=== PATIENT | male | born 1970 | race Asian ===

== ENCOUNTER 2020-05-11 10:30 | Emergency (ER) | payer OTHER ==
[~2020-05-11] VITALS: Ht 175.3 cm; Wt 59.0 kg
[2020-05-11 10:33] VITALS: BP_SYST 162
--- NOTE | 2020-05-11 10:40 | NUR ---
Patient to ER bed 2 to gown for evaluation. Side rails up. Report given to Fanta SIERRA.
--- NOTE | 2020-05-11 10:50 | NUR ---
PT BIBA BIB [id number] FROM WORK C/O PALPITATIONS X3O MIN PRIOR TO ARRIVAL. REPORTS THAT IT HAS RESOLVED UPON ARRIVAL. PT DENIES ANY MEDICAL HX, DENIES CHEST PAIN AT THIS TIME. PT IS AAOX4, V/S STABLE
--- NOTE | 2020-05-11 11:00 | NUR ---
ER DR. JACKMAN AT THE BEDSIDE EVALUATING PT
--- NOTE | 2020-05-11 11:10 | NUR ---
# 20 gauge angiocath placed to RAC. Use of asceptic technique. Opsite placed over site. Blood return noted. Blood for lab drawn from site. Flushed with 10 cc of normal saline. No evidence of infiltration noted. Patient tolerated well.
[2020-05-11 11:22] LABS: BASOPHILS % (AUTO) 0.6 % (0.0-2.0); EOSINOPHILS # (AUTO) 0.1 K/uL (0.0-0.4); EOSINOPHILS % (AUTO) 1.8 % (0.0-4.0); HEMATOCRIT 45.8 % (36-54); HEMOGLOBIN 15.2 g/dL (14.0-18.0); LYMPHOCYTES # (AUTO) 1.3 K/uL (1.0-5.5); LYMPHOCYTES % (AUTO) 25.8 % (20.5-51.5); MEAN CORPUSCULAR HEMOGLOBIN 30 pg (27-31); MEAN CORPUSCULAR HGB CONC 33 % (32-36); MEAN CORPUSCULAR VOLUME 89 fL (79.0-98.0); MONOCYTES # (AUTO) 0.3 K/uL (0.0-1.0); MONOCYTES % (AUTO) 6.5 % (1.7-9.3); NEUTROPHILS # (AUTO) 3.3 K/uL (1.8-7.7); NEUTROPHILS % (AUTO) 65.3 % (40.0-70.0); PLATELET COUNT (AUTO) 230 K/uL (130-430); RED BLOOD CELL COUNT(AUTO) 5.16 MIL/uL (4.2-6.2); RED CELL DISTRIBUTION WIDTH 12.4 % (9.0-15.0); WHITE BLOOD COUNT (AUTO) 5.1 K/uL (4.8-10.8)
--- NOTE | 2020-05-11 11:25 | NUR ---
PORTABLE X-RAY AT THE BEDSIDE
--- NOTE | 2020-05-11 11:28 | NUR ---
REPORT GIVEN TO MARIELA MARTIN FOR CONTINUING CARE
[2020-05-11 11:33] LABS: CALCIUM 9.1 mg/dL (8.4-11.0); CREATININE 0.89 mg/dL (0.55-1.30)
[2020-05-11 11:38] LABS: ALBUMIN 4.1 g/dL (3.4-4.8); TOTAL BILIRUBIN 0.3 mg/dL (0.0-1.0)
--- NOTE | 2020-05-11 11:45 | NUR ---
TIESHA TO ASSUME CARE, PT CALM, ALERT, RESP UNLABORED, SKIN WARM AND DRY. DENIES CP/SOB
--- NOTE | 2020-05-11 12:35 | NUR ---
RESP UNLABORED, SR ON MONITOR WITH FREQUENT PVC.
--- NOTE | 2020-05-11 12:55 | NUR ---
DENIES CP/SOB, RESP UNLABORED, CLEAR MENTATION AND SPEECH
[2020-05-11 13:38] VITALS: BP_SYST 129
--- NOTE | 2020-05-11 13:39 | NUR ---
Patient given written and verbal discharge instructions and verbalizes understanding. ER MD discussed with patient the results and treatment provided. Patient in stable condition. ID arm band removed. IV catheter removed intact and dressing applied, no active bleeding. Patient educated on pain management and to follow up with PMD. Pain Scale Opportunity for questions provided and answered. Medication side effect fact sheet provided.
== END 2020-05-11 13:39 | disposition home or self-care (01) ==
LOC: SED 10:30
DX: R00.2 Palpitations (principal)
CPT/HCPCS: 36415; 71045; 80053; 83880; 84484; 85025; 85379; 93005; 99285